=== PATIENT | male | born 2000 | race Caucasian/White ===

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

== ENCOUNTER 2020-08-05 14:46 | Emergency (ER) | payer OTHER | END 2020-08-05 15:36 | disposition left against medical advice (07) | LOC: ER1 14:46 | DX: Z53.21 Procedure and treatment not carried out due to patient leaving prior to being seen by health care provider (principal) ==

== ENCOUNTER 2021-04-22 11:15 | Emergency (ER) | payer OTHER ==
[2021-04-22 14:01] LABS: HEMOGLOBIN 15.8 gm/dl (14.0-17.5); RED BLOOD COUNT 4.6 M/UL (4.20-5.50); WHITE BLOOD COUNT 8.8 K/UL (4.5-11.0)
[2021-04-22 14:24] LABS: BUN/CREATININE RATIO 11 (0-10)
[2021-04-22] MEDS ORDERED: MOBIC15 MG PO (15:30)
== END 2021-04-22 15:52 | disposition home or self-care (01) ==
LOC: ER1 11:15
PROVIDERS: Physician Assistant
DX: R07.81 Pleurodynia (principal); R79.89 Other specified abnormal findings of blood chemistry; R05.9 Cough, unspecified; I10 Essential (primary) hypertension; K21.9 Gastro-esophageal reflux disease without esophagitis
CPT/HCPCS: 71045; 80053; 82550; 82553; 83874; 84484; 85025; 85379; 93005; 96374; 99285; J1885

== ENCOUNTER 2021-12-06 12:03 | Emergency (ER) | payer OTHER ==
[~2021-12-06 12:03] MED LIST: MOBIC15 MG PO
[2021-12-06] MEDS ORDERED: ZESTRIL10 MG PO (13:01)
== END 2021-12-06 13:47 | disposition home or self-care (01) ==
LOC: ER1 12:03
DX: L08.82 Omphalitis not of newborn (principal)
CPT/HCPCS: 99283